=== PATIENT | female | born 1975 | race Caucasian/White ===

== ENCOUNTER 2020-01-29 13:35 | Emergency (ER) | payer BC ==
[2020-01-29 13:59] VITALS: BP 123/64; PULSE 78
--- NOTE | 2020-01-29 14:04 | EDM.PDOC ---
ED HPI GENERAL MEDICAL PROBLEM - General Chief Complaint: Headache Stated Complaint: 2 DAYS OF SHARP PAIN IN HEAD Time Seen by Provider: 01/29/20 13:55 Source of Information: Reports: Patient History Limitations: Reports: No Limitations - History of Present Illness INITIAL COMMENTS - FREE TEXT/NARRATIVE: Patient is here for a pain on the right side of her head. It started about 2 days ago after one of her regular headaches. The pain is sharp, occurs in the same spot just behind her ear and radiates to the back/top of her head. It lasts for a few seconds at a time and occurs several times a day. Never had this before. She has also noted vertigo spells which come and last a few hours to days. Her last vertigo spell was shortly before her last headache and felt like a usual spell. No nausea or vomiting. No blurred vision or vertigo currently. Duration: Day(s): (2), Intermittent Location: Reports: Head Quality: Reports: Sharp Severity: Severe Improves with: Reports: Rest Worsens with: Reports: None - Related Data Allergies Allergy/AdvReac Type Severity Reaction Status Date / Time No Known Allergies Allergy Verified 01/29/20 13:45 Home Meds: Home Meds Sertraline [Zoloft] 25 mg PO DAILY 01/29/20 [History] Sertraline [Zoloft] 50 mg PO DAILY 01/29/20 [History] Past Medical History - Past Health History Medical/Surgical History: Denies Medical/Surgical History Social & Family History - Family History Family Medical History: Noncontributory - Caffeine Use Caffeine Use: Reports: Coffee, Soda ED ROS GENERAL - Review of Systems Review Of Systems: Comprehensive ROS is negative, except as noted in HPI. - Physical Exam Exam: See Below Exam Limited By: No Limitations General Appearance: Alert, WD/WN, No Apparent Distress Eye Exam: Bilateral Eye: Normal Inspection Ears: Normal External Exam Head Exam: Atraumatic, Normocephalic. No: Scalp Swelling, Scalp Abrasions, Scalp Ecchymosis, Scalp Tenderness Respiratory/Chest: No Respiratory Distress, Lungs Clear, Normal Breath Sounds, No Accessory Muscle Use Cardiovascular: Normal Peripheral Pulses, Regular Rate, Rhythm, No Murmur GI/Abdominal: Soft, Non-Tender Neuro Exam (Abbreviated): Alert, Oriented, CN II-XII Intact, Normal Cognition, No Motor/Sensory Deficits Extremities: Normal Inspection, Normal Range of Motion, Normal Capillary Refill Psychiatric: Normal Affect, Normal Mood Skin Exam: Warm, Dry, Intact, Normal Color, No Rash Course - Vital Signs Last Recorded V/S: Last Vital Signs Temp 97.4 F 01/29/20 13:42 Pulse 78 01/29/20 13:42 Resp 16 01/29/20 13:42 BP 123/64 01/29/20 13:42 Pulse Ox 97 01/29/20 13:42 - Orders/Labs/Meds Labs: Laboratory Tests 01/29/20 01/29/20 Range/Units 14:03 14:03 WBC 7.1 (5.0-10.0) 10^3/uL RBC 4.18 L (4.2-5.4) 10^6/uL Hgb 10.8 L (12.0-16.0) g/dL Hct 35.0 L (37.0-47.0) % MCV 83.7 (80-100) fL MCH 25.8 L (27.0-34.0) pg MCHC 30.9 L (33.0-35.0) g/dL Plt Count 322 (150-450) 10^3/uL Neut % (Auto) 63.5 (42.2-75.2) % Lymph % (Auto) 24.4 (20.5-50.1) % [place] % (Auto) 9.0 H (2-8) % Eos % (Auto) 2.4 (1.0-3.0) % Baso % (Auto) 0.7 (0.0-1.0) % ESR 13 (0-20) mm/hr Sodium 135 L (136-145) mmol/L Potassium 3.8 (3.5-5.1) mmol/L Chloride 100 (98-107) mmol/L Carbon Dioxide 26 (21-32) mmol/L Anion Gap 12.8 (7-13) mEq/L BUN 14 (7-18) mg/dL Creatinine 0.76 (0.55-1.02) mg/dL Est Cr Clr Drug Dosing 81.57 mL/min Estimated GFR (MDRD) > 60 BUN/Creatinine Ratio 18.4 (No establ ref range) Glucose 93 (74-99) mg/dL Calcium 8.6 (8.5-10.1) mg/dL Total Bilirubin 0.4 (0.2-1.0) mg/dL AST 10 L (15-37) U/L ALT 19 (14-59) U/L Alkaline Phosphatase 68 (46-116) U/L C-Reactive Protein < 0.2 (0.0-0.9) mg/dL Total Protein 7.2 (6.4-8.2) g/dL Albumin 3.6 (3.4-5.0) g/dL Globulin 3.6 Albumin/Globulin Ratio 1.0 - Re-Assessments/Exams Free Text/Narrative Re-Assessment/Exam: labs reviewed with the pt and differential diagnosis discussed. pt comfortable going home with muscle relaxants. 01/29/20 15:03 Departure - Departure Time of Disposition: 15:01 Disposition: Home, Self-Care 01 Condition: Good Clinical Impression: Pinched nerve in neck - Discharge Information *PRESCRIPTION DRUG MONITORING PROGRAM REVIEWED*: Not Applicable *COPY OF PRESCRIPTION DRUG MONITORING REPORT IN PATIENT VENKATES[facility]: Not Applicable Instructions: Pinched Nerve Forms: ED Department Discharge Additional Instructions: flexeril 10 mg PO QHS/PRN for muscle spasms follow up with PCP in 3-5 days, or sooner if needed Sepsis Event Note (ED) - Evaluation Sepsis Screening Result: No Definite Risk - Focused Exam Vital Signs: Vital Signs Temp Pulse Resp BP Pulse Ox 01/29/20 13:42 97.4 F 78 16 123/64 97
[2020-01-29 14:32] LABS: ANION GAP 12.8 mEq/L (7-13); CHLORIDE,CL 100 mmol/L (98-107); SODIUM,NA 135 mmol/L (136-145)
== END 2020-01-29 15:15 | disposition home or self-care (01) ==
LOC: DL.ED 13:35
DX: G58.9 Mononeuropathy, unspecified (principal); Z79.899 Other long term (current) drug therapy
CPT/HCPCS: 36415; 80053; 85025; 85651; 86140; 99283; 99284

== ENCOUNTER 2022-02-01 09:12 | Emergency (ER) | payer BC ==
[2022-02-01] MEDS ORDERED: HYDROmorphone 1 MG/ML Syringe IVPUSH ONE (09:44)
[2022-02-01] MEDS ORDERED: Ondansetron 4 MG/2 ML SDV IVPUSH ONE (09:44)
[2022-02-01 10:14] LABS: ANION GAP 16.3 mEq/L (7-13)
[2022-02-01] MEDS ORDERED: Iopamidol 612 MG/ML 100 ML Bottle IVPUSH ONE (10:36)
[2022-02-01] MEDS ORDERED: Iopamidol 612 MG/ML 50 ML SDV IVPUSH ONE (10:48)
[2022-02-01] MEDS ORDERED: ceFAZolin 2 GM in Premix Bag 1 BAG IV ONE (10:50)
[2022-02-01 12:42] VITALS: BP 108/67; PULSE 72
== END 2022-02-01 12:12 | disposition home or self-care (01) ==
LOC: DL.ED 09:12
DX: R33.9 Retention of urine, unspecified (principal); R74.8 Abnormal levels of other serum enzymes; Z90.710 Acquired absence of both cervix and uterus; Z90.722 Acquired absence of ovaries, bilateral
CPT/HCPCS: 36415; 51702; 74178; 80053; 83605; 85025; 96374; 96375; 99284; J1170; J2405; Q9967; 51701